=== PATIENT | male | born 1995 | race Caucasian/White ===

== ENCOUNTER 2019-09-29 10:56 | Emergency (ER) | payer OTHER, SELFPAY ==
[2019-09-29 11:00] VITALS: BP 125/63; PULSE 77; RESP 16; TEMP 36.6; O2SAT 100
--- NOTE | 2019-09-29 11:29 | ED.ABDPAIN ---
HPI - Abdominal Pain General Chief Complaint: Urogenital-Male Stated Complaint: PELVIC PAIN/FREQUENT URINATION Time Seen by Provider: 09/29/19 11:15 Source: patient Mode of arrival: ambulatory Limitations: no limitations History of Present Illness HPI narrative: 24-year-old male presents for evaluation of suprapubic pressure, cramping, intermittent dysuria that is been present for 3 weeks. He reports the same symptoms developed at the end of June and he was seen here July 19 and was given doxycycline, all STD testing and UA were negative at that time. Patient followed up with the health department for more STD testing which were also negative. Has not had intercourse or sexual relations since he was here last. He denies any unprotected sexual intercourse. He denies any sharp stabbing pain, flank pain, low back pain, fever, sore throat, rash, penile discharge, lesions, testicular pain or swelling. No history of urinary tract infections or renal stones. He reports cold symptoms in the last 3 weeks that have resolved Related Data Allergies Allergy/AdvReac Type Severity Reaction Status Date / Time amoxicillin Allergy Rash Verified 07/19/19 11:01 Review of Systems Review of Systems: Narrative: CONSTITUTIONAL: Denies fever, chills, weight loss, or sweats. EYES: Denies visual changes, redness, or discharge. ENT: Denies rhinorrhea, congestion, sore throat, or otalgia. CARDIOVASCULAR: Denies chest pain, palpitations, or edema. RESPIRATORY: Denies cough or dyspnea. GASTROINTESTINAL: Denies nausea, vomiting, or diarrhea. Reports suprapubic cramping, pressure GENITOURINARY: Denies hematuria, malordous urine. Reports urinary frequency and dysuria SKIN: Denies rash or itching. MUSCULOSKELETAL: Denies back pain, joint pain, myalgia, swelling NEUROLOGIC: Denies headache, numbness, or weakness. PSYCHIATRIC: Denies anxiety or depression. All systems reviewed & are unremarkable except as noted in HPI and below Exam Narrative: Exam Narrative: GENERAL: No distress, well appearing, well nourished, alert and calm HEAD: Normocephalic, atraumatic. EYES: Pupils equal, round reactive to light. Extraocular movements intact. Conjunctivae without redness or drainage. EARS: Tympanic membranes without erythema. TM landmarks intact with good light reflex. Ear canals without discharge. NOSE: Nares patent. Nasal turbinates noninflamed. No nasal discharge MOUTH: Mucous membranes moist. No lesions. No cyanosis. Dentition grossly normal. THROAT: Oropharynx without signs erythema, exudates or lesions. Tonsils not enlarged. NECK: Supple. No lymphadenopathy. RESPIRATORY: Airway patent. Chest clear to auscultation bilaterally. Breath sounds equal bilaterally. No retractions. CARDIOVASCULAR: Regular rate and rhythm. No murmurs, rubs, gallops, or clicks. Capillary refill <2 seconds. GASTROINTESTINAL: Soft, nontender, non-distended. Bowel sounds normoactive. No masses. No organomegaly. No CVA tenderness -no penile discharge noted, no abnormal lesions or skin discoloration. Testicles nontender, no abnormal swelling or hernias noted. No inguinal lymphadenopathy noted MUSCULOSKELETAL: Range of motion grossly normal in all four extremities. Strength grossly normal in all four extremities. No edema. No swelling SKIN: Color normal. Warm and dry. No rashes. Course Vital Signs Vital signs: Vital Signs Temperature 97.8 F 09/29/19 11:00 Pulse Rate 77 09/29/19 11:00 Respiratory Rate 16 09/29/19 11:00 Blood Pressure 125/63 09/29/19 11:00 Pulse Oximetry 100 09/29/19 11:00 Temperature 97.8 F 09/29/19 11:00 Pulse Rate 77 09/29/19 11:00 Respiratory Rate 16 09/29/19 11:00 Blood Pressure 125/63 09/29/19 11:00 Pulse Oximetry 100 09/29/19 11:00 Reviewed MDM - Abdominal Pain MDM Narrative Medical decision making narrative: Patient is in no acute distress and is non toxic appearing. UA negative. Sent off testing for trichomonas, gonor
== END 2019-09-29 11:52 | disposition home or self-care (01) ==
PROVIDERS: Emergency Provider Nurse Practitioner
DX: R30.0 Dysuria (principal)
CPT/HCPCS: 81003; 87491; 87591; 87661; 99213; G0463

== ENCOUNTER → 2022-06-29 11:20 | Outpatient (CLI) | payer OTHER, SELFPAY ==
--- NOTE | ~2022-06-29 | MR_ITS ---
EXAMINATION: MRA brain wo con DATE: 06/29/2022 12:15 INDICATION: Frontal headache. Bilateral tinnitus. TECHNIQUE: Magnetic resonance angiography (MRA) of the brain was performed without intravenous contra st with T1-weighted SPGR by the 3D [id number] technique. Maximum intensity projection 3D-reconstr uctions were obtained. COMPARISON: None. FINDINGS: The vertebral arteries are codominant. There is no significant stenosis of basilar artery or the post erior cerebral arteries. There is no significant stenosis of the intracranial internal carotid arteri es or anterior or middle cerebral arteries. Anterior communicating artery is normal. Posterior commun icating arteries are not identified. There is no aneurysm. IMPRESSION: 1. Normal MRA. Reviewed, dictated and finalized at location A. [facility] IMPRESSION: 1. Normal MRA.
== END ==
PROVIDERS: PCP Family Medicine; Visit Provider Internal Medicine Rheumatology
DX: G43.909 Migraine, unspecified, not intractable, without status migrainosus (principal)
CPT/HCPCS: 70544